=== PATIENT | female | born 1960 | race Caucasian/White ===

== ENCOUNTER 2017-02-10 21:14 | Emergency (ER) | payer MEDICAID, OTHER ==
[~2017-02-10] VITALS: Ht 167.6 cm; Wt 100.0 kg
[~2017-02-10 21:14] MED LIST: /ATOR40TA; /BACL20TA OR; /DULO30CA OR; /ESOM40CA; /FENT25PA; /HCTZ25TA PO; ACET65TA; AMBI10TA OR; ARTHROTEC; ASPI81TA83; ASPI81TA83 OR; ATIV0.5T3 PO; B COTAB PO; BABY81CH; BACIDCA OR; BACL10TA2 OR; BENA25CA PO; BUSP10TA2; CALC-204 PO; CALCCHW12; CALCCHW12 OR; CARA1TAB2 PO; CELE100C OR; CELEBREX PO; CIPRO; CLAR10CA3 PO; CYCL10TA3 PO; Cymbalta PO; DICY20TA OR; DULC100C PO; ECOT325T5; ERYT250C11 PO; FIBE625T4 FT; FLEXERIL; FLEXERIL PO; GAS-80CH PO; HYDR10EL PO; HYDR25TA6; HYDR25TA6 OR; HYDROCODONE/ACETAMIN PO; HYDROXYZINE HCL PO; KEPP500T4 PO; KETO-13 PO; KETO-28 OR; Keppra PO; LIDO5DIS; LIDO5DIS EX; LORA0.5T OR; LORATADINE; METH750T; METO10TA2; METO10TA2 PO; METO5TAB2 PO; MS C15TA5; MULTTAB4 PO; MYLI40DR OR; Magnesium PO; NAPR500T; NAPR500T OR; Naprosyn; PANT40TA2 PO; PERC5TAB8; PERC5TAB8 OR; POTA20TA2; PRED20TA PO; PREM0.9T; PRIL40CA OR; PROTPAK; PYRIDIUM; RANI300T OR; REGL10TA6 PO; ROBA750T OR; SERTRALINE PO; SIMV20TA2 OR; SIMV40TA2 OR; SKELAXIN PO; TESS100C OR; TRAM50TA2; TRAM50TA2 OR; TRAMADOL PO; TRAZ50TA2 PO; TRAZADONE PO; TUMS500C; ULTR300T; VICO5TAB PO; VICODIN PO; VITACAP16 PO; VITAMIN D50000 UNT OR; VITATAB29 PO; ZOCO20TA; ZOFRAN; ZOLOFT PO; [UNRECOGNIZED DRUG - CODE] PO; [UNRECOGNIZED DRUG - OTHER]; [UNRECOGNIZED DRUG - OTHER]; cymbalta OR; fentanyl EXT; hydrocodone OR; omeprazole OR; protein PO
[2017-02-10] MEDS ORDERED: HYDR50TA70 PO (21:42)
[2017-02-10] MEDS ORDERED: SERT25TA88 PO (21:42)
[2017-02-10] MEDS ORDERED: NORT25CA2 PO (21:42)
[2017-02-10] MEDS ORDERED: methylPREDNISolone INJ 125 MG/2 ML VIAL (J2930) IM ONE (23:45)
[2017-02-11] MEDS ORDERED: PRED20TA PO (00:11)
[2017-02-11] MEDS ORDERED: VALI5TAB PO (00:11)
[2017-02-11 00:13] VITALS: BP 171/92
[2017-02-11] MEDS ORDERED: ACETAMINOPH W/CODEINE #3 TAB UD PO ONE (00:30)
--- NOTE | 2017-02-11 01:29 | REP ---
Clinical: Pain . Technique: Internal rotation, external rotation, and Y view. Findings: No acute fracture or dislocation. The acromioclavicular and glenohumeral joints are intact. No periarticular calcifications or degenerative changes are appreciated. Sub acromial space is normal. Surrounding soft tissues are unremarkable. Impression: Normal age appropriate right shoulder radiographs. Signed by Chandan Lucero MD 02/11/2017 01:21 A
== END 2017-02-11 00:33 | disposition home or self-care (01) ==
LOC: M ED 21:14
DX: M25.511 Pain in right shoulder (principal); I10 Essential (primary) hypertension; J45.909 Unspecified asthma, uncomplicated; Z79.899 Other long term (current) drug therapy; Z88.6 Allergy status to analgesic agent

== ENCOUNTER 2017-02-15 12:12 | Emergency (ER) | payer MEDICAID, OTHER ==
[~2017-02-15] VITALS: Ht 165.1 cm; Wt 45.5 kg
[~2017-02-15 12:12] MED LIST changes: +HYDR50TA70 PO; +NORT25CA2 PO; +SERT25TA88 PO; +VALI5TAB PO
[2017-02-15 13:17] LABS: BASO # 0.1 K/mm3 (0.0-0.2); BASO % 0.8 % (0.0-1.0); EOS # 0.3 K/mm3 (0.0-0.50); EOS % 3.9 % (0.0-3.0); LARGE UNSTAINED CELL # 0.2 K/mm3 (0.0-0.4); LARGE UNSTAINED CELL % 2.3 % (0.0-4.0); LYMPH # 2.3 K/mm3 (1.5-4.5); LYMPH % 31.5 % (24.0-44.0); MEAN CORPUSCULAR HGB CONC 33.7 g/dl (32.0-36.5); MEAN CORPUSCULAR VOLUME 83.2 fl (80.0-96.0); MONO # 0.5 K/mm3 (0.0-0.8); MONO % 6.7 % (0.0-5.0); NEUTROPHILS % 54.8 % (36.0-66.0); PLATELET COUNT, AUTOMATED 313 k/mm3 (150-450); RED CELL DISTRIBUTION WIDTH 13.2 % (11.5-14.5); WHITE BLOOD COUNT 7.2 K/mm3 (4.0-10.0)
[2017-02-15] MEDS ORDERED: LABETALOL HCL 100 MG/20 ML VIAL IV STA (13:17)
[2017-02-15 13:29] LABS: ALBUMIN 3.6 GM/DL (3.2-5.2); ALBUMIN/GLOBULIN RATIO 0.86 (1.00-1.93); ALKALINE PHOSPHATASE 115 U/L (45-117); ALT/SGPT 34 U/L (12-78); ANION GAP 6 MEQ/L (8-16); AST/SGOT 19 U/L (15-37); BILIRUBIN,DIRECT 0.1 MG/DL (0.0-0.2); BILIRUBIN,TOTAL 0.5 MG/DL (0.2-1.0); BLOOD UREA NITROGEN 14 MG/DL (7-18); CALCIUM LEVEL 8.5 MG/DL (8.5-10.1); CARBON DIOXIDE LEVEL 31 MEQ/L (21-32); CHLORIDE LEVEL 101 MEQ/L (98-107); GLOMERULAR FILTRATION RATE > 60.0 (>51); GLUCOSE, FASTING 84 MG/DL (70-105); POTASSIUM SERUM 3.3 MEQ/L (3.5-5.1); SODIUM LEVEL 138 MEQ/L (136-145); TOTAL PROTEIN 7.8 GM/DL (6.4-8.2)
[2017-02-15] MEDS ORDERED: MORPHINE 4 MG/ML 1ML SYRINGE IV ONE (13:30)
[2017-02-15 13:31] VITALS: BP 190/103
--- NOTE | 2017-02-15 13:41 | REP ---
Chest x-ray: Two views. History: Chest pain. Comparison study: July 06, 2015. Findings: The lungs are symmetrically aerated and clear. The pleural angles are sharp. Heart is not enlarged. The aorta is slightly tortuous. EKG monitoring electrodes overlie the chest. No bony abnormality is seen. Impression: Negative chest x-ray. Signed by Matthew Cast MD 02/15/2017 02:46 P
[2017-02-15] MEDS ORDERED: POTASSIUM CHLORIDE 10 MEQ SR TABLET PO ONE (14:00)
[2017-02-15] MEDS ORDERED: ONDANSETRON 4MG/2ML VIAL (J2405) IV ONE (14:15)
[2017-02-15] MEDS ORDERED: PERC5TAB12 PO (15:42)
[2017-02-15 16:15] VITALS: BP 156/89
--- NOTE | 2017-02-15 21:35 | ECGEPIP ---
Stationary ECG Study [facility] - ED Test Date: 2017-02-15 Pat Name: SUKH CACERES Department: Room: - Gender: F Block Mechanic: rn : 1960 Requested By: AURE Gama Order Number: [id number] Reading MD: Helen Beaver Measurements Intervals [place] Rate: 75 P: 40 GA: 136 QRS: 3 QRSD: 90 T: 36 QT: 398 QTc: 445 Interpretive Statements SINUS RHYTHM WITH SINUS ARRHYTHMIA SIMILAR 03/02/15 Electronically Signed On 02-15-2017 21:34:34 EDT by Helen Beaver
[2017-02-17 00:11] LABS: Lyme Disease IgG/IgM Antibodie <0.91 ISR (0.00-0.90); Lyme Disease IgM Ab Quantitati <0.80 index (0.00-0.79)
== END 2017-02-15 16:17 | disposition home or self-care (01) ==
LOC: M ED 12:12
DX: M79.601 Pain in right arm (principal); M54.9 Dorsalgia, unspecified; M51.9 Unspecified thoracic, thoracolumbar and lumbosacral intervertebral disc disorder; Z85.038 Personal history of other malignant neoplasm of large intestine; F41.9 Anxiety disorder, unspecified; M19.90 Unspecified osteoarthritis, unspecified site

== ENCOUNTER → 2017-02-22 | Outpatient (CLI) | payer OTHER ==
[~2017-02-22] MED LIST changes: +PERC5TAB12 PO
[2017-02-22 11:50] LABS: BASO # 0.1 K/mm3 (0.0-0.2); BASO % 0.8 % (0.0-1.0); EOS # 0.3 K/mm3 (0.0-0.50); EOS % 3.6 % (0.0-3.0); LYMPH % 31.9 % (24.0-44.0); MEAN CORPUSCULAR HEMOGLOBIN 28.3 pg (27.0-33.0); MEAN CORPUSCULAR HGB CONC 33.6 g/dl (32.0-36.5); MEAN CORPUSCULAR VOLUME 84.2 fl (80.0-96.0); MONO # 0.6 K/mm3 (0.0-0.8); MONO % 7.3 % (0.0-5.0); NEUTROPHILS # 4.6 K/mm3 (1.8-7.7); NEUTROPHILS % 53.6 % (36.0-66.0); RED CELL DISTRIBUTION WIDTH 13.5 % (11.5-14.5); WHITE BLOOD COUNT 8.6 K/mm3 (4.0-10.0)
[2017-02-22 12:11] LABS: ALBUMIN 3.4 GM/DL (3.2-5.2); ALBUMIN/GLOBULIN RATIO 0.89 (1.00-1.93); ALKALINE PHOSPHATASE 106 U/L (45-117); ALT/SGPT 33 U/L (12-78); AMYLASE 55 U/L (25-115); ANION GAP 8 MEQ/L (8-16); AST/SGOT 20 U/L (15-37); BILIRUBIN,DIRECT 0.1 MG/DL (0.0-0.2); BILIRUBIN,TOTAL 0.3 MG/DL (0.2-1.0); BLOOD UREA NITROGEN 11 MG/DL (7-18); CALCIUM LEVEL 9.2 MG/DL (8.5-10.1); CARBON DIOXIDE LEVEL 28 MEQ/L (21-32); CHLORIDE LEVEL 102 MEQ/L (98-107); CREATININE FOR GFR 0.75 MG/DL (0.55-1.02); GLOMERULAR FILTRATION RATE > 60.0 (>51); GLUCOSE, FASTING 82 MG/DL (70-105); POTASSIUM SERUM 4.2 MEQ/L (3.5-5.1); SODIUM LEVEL 138 MEQ/L (136-145); TOTAL PROTEIN 7.2 GM/DL (6.4-8.2)
== END ==
LOC: M LAB 11:02
PROVIDERS: ATTEND Physician Assistant Medical
DX: R19.7 Diarrhea, unspecified (principal)

== ENCOUNTER 2018-01-12 15:32 | Emergency (ER) | payer OTHER ==
[2018-01-12 17:27] LABS: BASO # 0.1 10^3/uL (0.0-0.2); BASO % 0.9 % (0.0-1.0); EOS # 0.3 10^3/uL (0.0-0.50); EOS % 5.2 % (0.0-3.0); HEMOGLOBIN 13.4 g/dl (12.0-15.5); IMMATURE GRANULOCYTE % 0.3 % (0-3.0); LYMPH # 2.3 10^3/uL (1.5-4.5); LYMPH % 35.5 % (24.0-44.0); MEAN CORPUSCULAR HEMOGLOBIN 27.6 pg (27.0-33.0); MEAN CORPUSCULAR HGB CONC 32.7 g/dl (32.0-36.5); MEAN CORPUSCULAR VOLUME 84.5 fl (80.0-96.0); MONO # 0.6 10^3/uL (0.0-0.8); MONO % 9.6 % (0.0-5.0); NEUTROPHILS # 3.2 10^3/uL (1.8-7.7); NEUTROPHILS % 48.5 % (36.0-66.0); PLATELET COUNT, AUTOMATED 242 10^3/uL (150-450); RED BLOOD COUNT 4.85 10^6/uL (4.00-5.40); RED CELL DISTRIBUTION WIDTH 13.5 % (11.5-14.5); WHITE BLOOD COUNT 6.6 10^3/uL (4.0-10.0)
[2018-01-12] MEDS: ONDANSETRON 4MG/2ML VIAL (J2405) IV (17:39)
[2018-01-12] MEDS: MORPHINE 2 MG/ML 1ML SYRINGE (J2270) IV ×2 (17:40→19:20)
[2018-01-12 17:44] LABS: INR 0.94; PARTIAL THROMBOPLASTIN TIME 26.5 SECONDS (26.8-37.9); PROTHROMBIN TIME 12.6 SECONDS (12.4-14.5)
[2018-01-12] MEDS ORDERED: ISOVUE-370 76% 100ML VIAL (Q9967) As Ordered (17:47)
[2018-01-12 17:50] LABS: ALBUMIN 3.5 GM/DL (3.2-5.2); ALBUMIN/GLOBULIN RATIO 0.83 (1.00-1.93); ALKALINE PHOSPHATASE 111 U/L (45-117); ALT/SGPT 33 U/L (12-78); ANION GAP 5 MEQ/L (8-16); AST/SGOT 25 U/L (7-37); BILIRUBIN,DIRECT < 0.1 MG/DL (0.0-0.2); BILIRUBIN,TOTAL 0.2 MG/DL (0.2-1.0); BLOOD UREA NITROGEN 16 MG/DL (7-18); CARBON DIOXIDE LEVEL 30 MEQ/L (21-32); CHLORIDE LEVEL 106 MEQ/L (98-107); CPK CREATINE PHOSPHOKINASE 91 U/L (26-192); GLOMERULAR FILTRATION RATE > 60.0 (>51); GLUCOSE, FASTING 84 MG/DL (70-100); LIPASE 175 U/L (73-393); POTASSIUM SERUM 4.3 MEQ/L (3.5-5.1); SODIUM LEVEL 141 MEQ/L (136-145); TOTAL PROTEIN 7.7 GM/DL (6.4-8.2); TROPONIN I < 0.02 NG/ML (< 0.10)
[2018-01-12 17:51] LABS: CK-MB VALUE MASS < 1.0 NG/ML (<3.6); MB/CK RELATIVE INDEX 1.09 (< OR =4); NT-PRO BNP 97 PG/ML (<125)
[2018-01-12 18:01] LABS: KETONE, URINE AUTO RFX NEGATIVE (NEGATIVE); LEUKOCYTE ESTERASE UR AUTO RFX NEGATIVE (NEGATIVE); NITRITE, URINE AUTO RFX NEGATIVE (NEGATIVE); RBC, URINE AUTO RFX 1 /HPF (0-3); SPECIFIC GRAVITY UR AUTO RFX 1.003 (1.002-1.035); SQUAM EPITHELIAL CELL UR AURFX 0 /HPF (0-6); WBC, URINE AUTO RFX 0 /HPF (0-3)
== END 2018-01-12 19:46 | disposition home or self-care (01) ==
LOC: M ED 15:32
DX: M79.604 Pain in right leg (principal); M79.605 Pain in left leg; R60.0 Localized edema; R00.1 Bradycardia, unspecified; I10 Essential (primary) hypertension; E78.5 Hyperlipidemia, unspecified; K21.9 Gastro-esophageal reflux disease without esophagitis; K57.92 Diverticulitis of intestine, part unspecified, without perforation or abscess without bleeding; J45.909 Unspecified asthma, uncomplicated; M54.9 Dorsalgia, unspecified; M79.7 Fibromyalgia; F41.9 Anxiety disorder, unspecified; F32.9 Major depressive disorder, single episode, unspecified; Z87.891 Personal history of nicotine dependence; Z88.8 Allergy status to other drugs, medicaments and biological substances; Z79.899 Other long term (current) drug therapy
CPT/HCPCS: J2405

== ENCOUNTER → 2018-04-11 | Outpatient (REF) | payer OTHER, MEDICAID | LOC: M SFHCLERA 12:37 | DX: N30.01 Acute cystitis with hematuria (principal) | CPT/HCPCS: 87086 ==

== ENCOUNTER 2018-06-02 02:31 | Emergency (ER) | payer OTHER, MEDICAID ==
[2018-06-02] MEDS: diphenhydrAMINE INJ 50MG/ML VIAL (J1200) IV (03:46)
[2018-06-02] MEDS: dexameTHASONE 20 MG/5 ML VIAL (J1100) IV (03:47)
[2018-06-02] MEDS: METOCLOPRAMIDE INJ 10MG/2ML VIAL (J2765) IV (03:47)
== END 2018-06-02 04:40 | disposition home or self-care (01) ==
LOC: M ED 02:31
DX: R51 Headache (principal); E78.5 Hyperlipidemia, unspecified; F32.9 Major depressive disorder, single episode, unspecified; M79.7 Fibromyalgia; G89.29 Other chronic pain; M54.9 Dorsalgia, unspecified; Z79.899 Other long term (current) drug therapy; Z88.8 Allergy status to other drugs, medicaments and biological substances
CPT/HCPCS: J1200

== ENCOUNTER 2019-07-03 14:06 | Emergency (ER) | payer OTHER ==
[~2019-07-03] VITALS: Ht 165.1 cm; Wt 90.9 kg
[~2019-07-03 14:06] MED LIST changes: -/ATOR40TA; -/BACL20TA OR; -/DULO30CA OR; -/ESOM40CA; -/FENT25PA; -/HCTZ25TA PO; +BACL1TAB9 OR; +CYMB1CAP5 OR; +FENT1DIS14; +HYDR-3644 PO; +LIPI1TAB2; +NEXI1CAP3; +SERT25TA21 PO; -SERT25TA88 PO; +SIMV40TA20 PO; +TIZA4CAP PO; +VITA30004 PO
[2019-07-03] MEDS ORDERED: TIZA4TAB4 PO (14:40)
[2019-07-03] MEDS ORDERED: HYDR-3363 PO (14:40)
[2019-07-03 15:33] LABS: HEMATOCRIT 40.7 % (36.0-47.0); HEMOGLOBIN 13.3 g/dl (12.0-15.5); MEAN CORPUSCULAR HEMOGLOBIN 27.9 pg (27.0-33.0); MEAN CORPUSCULAR HGB CONC 32.7 g/dl (32.0-36.5); MEAN CORPUSCULAR VOLUME 85.3 fl (80.0-96.0); PLATELET COUNT, AUTOMATED 317 10^3/uL (150-450); RED BLOOD COUNT 4.77 10^6/uL (4.00-5.40); WHITE BLOOD COUNT 7.5 10^3/uL (4.0-10.0)
[2019-07-03 16:05] LABS: ACETAMINOPHEN LEVEL 7.1 UG/ML (10.0-30.0); ALBUMIN 3.5 GM/DL (3.2-5.2); ALT/SGPT 34 U/L (12-78); BILIRUBIN,DIRECT 0.1 MG/DL (0.0-0.2); BILIRUBIN,TOTAL 0.6 MG/DL (0.2-1.0); BLOOD UREA NITROGEN 13 MG/DL (7-18); CALCIUM LEVEL 8.7 MG/DL (8.5-10.1); CARBON DIOXIDE LEVEL 29 MEQ/L (21-32); CHLORIDE LEVEL 105 MEQ/L (98-107); CREATININE FOR GFR 0.84 MG/DL (0.55-1.30); ETHYL ALCOHOL (ETHANOL) < 0.003 % (0.000-0.010); GLOMERULAR FILTRATION RATE > 60.0 (>51); GLUCOSE, FASTING 77 MG/DL (70-100); POTASSIUM SERUM 3.6 MEQ/L (3.5-5.1); SALICYLATE LEVEL < 1.7 MG/DL (5.0-30.0); SODIUM LEVEL 139 MEQ/L (136-145); TOTAL PROTEIN 7.4 GM/DL (6.4-8.2)
[2019-07-03 16:21] LABS: AMPHETAMINES LEVEL URINE NEGATIVE (NEGATIVE); BARBITURATES URINE NEGATIVE (NEGATIVE); BENZODIAZEPINES URINE NEGATIVE (NEGATIVE); CANNABINOIDS URINE POSITIVE (NEGATIVE); COCAINE METABOLITE URINE NEGATIVE (NEGATIVE); METHADONE URINE NEGATIVE (NEGATIVE); OPIATES URINE NEGATIVE (NEGATIVE); PHENCYCLIDINE URINE NEGATIVE (NEGATIVE)
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
[2019-07-03 18:10] VITALS: BP 137/93
== END 2019-07-03 19:02 | disposition home or self-care (01) ==
LOC: M ED 14:06
DX: F43.0 Acute stress reaction (principal); M79.7 Fibromyalgia; F17.218 Nicotine dependence, cigarettes, with other nicotine-induced disorders; Z88.8 Allergy status to other drugs, medicaments and biological substances
CPT/HCPCS: 80048; 80076; 80307; 84443; 85027; 99284; G0480